=== PATIENT | female | born 1995 | race Caucasian/White ===

== ENCOUNTER 2016-10-23 03:24 | Emergency (ER) | payer OTHER ==
[~2016-10-23] VITALS: Ht 157.5 cm; Wt 88.0 kg
[~2016-10-23 03:24] MED LIST: PREN-39 PO
[2016-10-23 03:26] VITALS: Ht 157.5 cm; Wt 88.0 kg
[2016-10-23] MEDS ORDERED: DIPHTH/TET/ACEL PERTUSS (ADULT) 0.5 ML VIAL IM* ONE (04:00)
--- NOTE | 2016-10-23 04:15 | ERD ---
ER Documentation Chief Complaint Date/Time DATE: 10/23/16 TIME: 04:12 Chief Complaint accidentally cut herself w/scissors tonite on her R hand by the web HPI 18-year-old female comes emergency department the laceration in her right thumb webspace from a pair of scissors that had accidentally cut into her hand tonight. She states that she accidentally caused a stabbing laceration in her thumb webspace. Last tetanus shot is unknown. She is no paresthesias or weakness. ROS All systems reviewed and are negative except as per history of present illness. Medications Home Meds Reported Medications Vits W-Ca,Fe,Fa(<1MG) ( Vitamins) 1 Tab Tablet, 1 TAB PO DAILY 05/26/13 Allergies Allergies: Coded Allergies: No Known Allergies (Verified Allergy, Unknown, 05/26/13) PMhx/Soc History of Surgery: No Anesthesia Reaction: No Hx Neurological Disorder: No Hx Respiratory Disorders: No Hx Cardiac Disorders: No Hx Psychiatric Problems: No Hx Miscellaneous Medical Probl: No Hx Alcohol Use: No Hx Substance Use: No Hx Tobacco Use: No Physical Exam Vitals Vital Signs Date Time Temp Pulse Resp B/P Pulse Ox O2 Delivery O2 Flow Rate FiO2 10/23/16 03:26 97.5 80 18 130/71 99 Physical Exam General: Well-developed, well-nourished. The patient appears in no acute distress. HEENT: Head is normocephalic, atraumatic. No scleral icterus. Neck: Supple. Nontender. Lungs: Clear to auscultation. Normal air movement. Heart: Regular rate and rhythm. S1 and S2 are normal. No murmurs, gallops, or rubs. Abdomen: Nondistended. Extremities: There is a 1 cm laceration in the thumb webspace of the right hand. Is superficial, there is no active bleeding, no foreign body. He she is able to make an okay sign, thumbs up. Radial pulses 2+ bilaterally, capillary refill less than 2 seconds. She is able to flex and extend the thumb. Neurologic: Alert and oriented 3. No focal deficits. Normal speech and gait. Skin: Normal turgor. No rash or lesions. Results 24 hrs Current Medications Medications (Trade) Dose Ordered Sig/Dennis Route PRN Reason Start Time Stop Time Status Last Admin Dose Admin Diphtheria/ Tetanus/Acell Pertussis (Adacel) 0.5 ml ONCE ONCE IM* 10/23/16 04:00 10/23/16 04:01 DC Procedures/MDM 11Laceration Repair by me via Dermabond: Patient was verbally consented location: Right thumb webspace Tendon/Joint/Nerves: No injury Foreign body: None detected after copious irrigation and exploration Post Closure Length: 1 cm Patient's bleeding was easily controlled in the department and there is no indication of anemia. No evidence of compartment syndrome, neurologic injury, vascular injury, open joint, tendon laceration, or foreign body. Patient is appropriate for outpatient follow up. 48 hour wound check. Scar minimization instructions given. Medical decision makin-year-old female comes in with a superficial laceration in the webspace of the right hand, there is a superficial laceration , with no active bleeding, no evidence of tendon injury. Laceration was closed with Dermabond without any complications, she is stable for discharge. Departure Diagnosis: Primary Impression: Laceration Condition: Good Patient Instructions: Emanuel Alonso ANN PA-C Oct 23, 2016 04:15
== END 2016-10-23 04:24 | disposition home or self-care (01) ==
LOC: FTE 03:24
DX: S61.011A Laceration without foreign body of right thumb without damage to nail, initial encounter (principal); W27.2XXA Contact with scissors, initial encounter; Y92.9 Unspecified place or not applicable; Z23 Encounter for immunization
CPT/HCPCS: 12001; 90471; 90715; Z7502

== ENCOUNTER 2018-03-13 04:06 | Emergency (ER) | payer OTHER ==
[~2018-03-13] VITALS: Wt 81.7 kg
[2018-03-13 04:09] VITALS: BP 131/78; PULSE 65; RESP 20
[2018-03-13] MEDS ORDERED: KETOROLAC 30 MG INJ IM STA (05:13)
[2018-03-13] MEDS ORDERED: HYDR-4011 PO (06:39)
[2018-03-13] MEDS ORDERED: CIPR500T4 PO (06:46)
--- NOTE | 2018-03-25 00:58 | QN ---
Documentation Comment Medical screening exam performed. Patient complaining of right upper quadrant abdominal pain. CBC, CMP, lipase, UA, and right upper quadrant ultrasound ordered. Patient will be managed by the oncoming provider. VEE HUFF NP Mar 25, 2018 00:58
--- NOTE | 2018-04-07 07:14 | ERD ---
ER Documentation Chief Complaint Chief Complaint epigastric pain x's 2 hours HPI 22 year old female presents with history of epigastric pain for past 2 hours. Patient states she has a history of gallstones. Denies possibility of . Denies fever, vomiting, diarrhea. Denies other past medical history. Denies allergies. Denies medications. Denies surgeries. Denies alcohol, tobacco, drug use. Up to date on vaccines. ROS All systems reviewed and are negative except as per history of present illness. Medications Home Meds Active Scripts Ciprofloxacin Hcl* (Ciprofloxacin Hcl*) 500 Mg Tablet, 500 MG PO BID for cholecystitis for 7 Days, #14 TAB Prov:ALEJANDRO BANKS 03/13/18 Hydrocodone/Acetaminophen ([place] 5-325 Tablet) 1 Each Tablet, 1 TAB PO Q6H PRN for PAIN, #10 TAB Prov:ALEJANDRO BANKS 03/13/18 Reported Medications Vits W-Ca,Fe,Fa(<1MG) ( Vitamins) 1 Tab Tablet, 1 TAB PO DAILY 05/26/13 Allergies Allergies: Coded Allergies: No Known Allergies (Verified Allergy, Unknown, 05/26/13) PMhx/Soc Medical and Surgical Hx: pt denies Medical Hx History of Surgery: No Anesthesia Reaction: No Hx Neurological Disorder: No Hx Respiratory Disorders: No Hx Cardiac Disorders: No Hx Psychiatric Problems: No Hx Miscellaneous Medical Probl: No Hx Alcohol Use: No Hx Substance Use: No Hx Tobacco Use: No Smoking Status: Never smoker FmHx Family History: No diabetes, No coronary disease, No other Physical Exam Physical Exam Const: No acute distress Resp: Clear to auscultation bilaterally Cardio: Regular rate and rhythm, no murmurs Abd: + Dewey, URQ pain. Otherwise soft, non tender, non distended. Normal bowel sounds. Back: No midline or flank tenderness Neur: Awake and alert Psych: Normal Mood and Affect Results 24 hrs Laboratory Tests Test 03/13/18 05:03 White Blood Count 12.1 10^3/ul Red Blood Count 4.58 10^6/ul Hemoglobin 12.9 g/dl Hematocrit 39.5 % Mean Corpuscular Volume 86.2 fl Mean Corpuscular Hemoglobin 28.2 pg Mean Corpuscular Hemoglobin Concent 32.7 g/dl Red Cell Distribution Width 14.2 % Platelet Count 340 10^3/UL Mean Platelet Volume 10.2 fl Immature Granulocytes % 0.200 % Neutrophils % 79.4 % Lymphocytes % 11.5 % Monocytes % 7.7 % Eosinophils % 0.7 % Basophils % 0.5 % Nucleated Red Blood Cells % 0.0 /100WBC Immature Granulocytes # 0.030 10^3/ul Neutrophils # 9.6 10^3/ul Lymphocytes # 1.4 10^3/ul Monocytes # 0.9 10^3/ul Eosinophils # 0.1 10^3/ul Basophils # 0.1 10^3/ul Nucleated Red Blood Cells # 0.0 10^3/ul Urine Color YELLOW Urine Clarity CLEAR Urine pH 8.0 Urine Specific [place] 1.029 Urine Ketones TRACE mg/dL Urine Nitrite NEGATIVE mg/dL Urine Bilirubin NEGATIVE mg/dL Urine Urobilinogen 1+ mg/dL Urine Leukocyte Esterase NEGATIVE Ezio/ul Urine Microscopic RBC 5 /HPF Urine Microscopic WBC 3 /HPF Urine Squamous Epithelial Cells FEW /HPF Urine Hemoglobin 2+ mg/dL Urine Glucose NEGATIVE mg/dL Urine Total Protein 1+ mg/dl Sodium Level 147 mmol/L Potassium Level 3.4 mmol/L Chloride Level 104 mmol/L Carbon Dioxide Level 28 mmol/L Anion Gap 15 Blood Urea Nitrogen 21 mg/dl Creatinine 0.57 mg/dl Est Glomerular Filtrat Rate mL/min > 60 mL/min Glucose Level 113 mg/dl Calcium Level 9.5 mg/dl Total Bilirubin 0.1 mg/dl Direct Bilirubin 0.00 mg/dl Indirect Bilirubin 0.1 mg/dl Aspartate Amino Transf (AST/SGOT) 110 IU/L Alanine Aminotransferase (ALT/SGPT) 57 IU/L Alkaline Phosphatase 94 IU/L Total Protein 8.2 g/dl Albumin 4.6 g/dl Globulin 3.60 g/dl Albumin/Globulin Ratio 1.27 Lipase 124 U/L POC Beta HCG, Qualitative NEGATIVE Current Medications Medications Dose Sig/Dennis Start Time Status Last (Trade) Ordered Route PRN Stop Time Admin Dose Reason Admin Ketorolac 30 mg ONCE STAT 03/13/18 DC 03/13/18 Tromethamine IM 05:13 05:31 (Toradol) 03/13/18 05:14 Procedures/MDM DIAGNOSTIC IMAGING REPORT Patient: TARA MOTA : 1995 Age: 22 Sex: F MR #: [id number] DOS: 03/13/18 0450 Ordering MD: VEE HUFF NP Location: [facility] Room/Bed: PROCEDURE: Ultrasound right upper quadrant CLINICAL INDICATION: Abdominal pain. TECHNIQUE: Sonographic imaging of the right upper quadrant was performed with grayscale and color Doppler techniques. COMPARISON: None. FINDINGS: LIVER: Measures 16.5 cm in length without appreciated abnormality. GALLBLADDER: Small gallstones are present. There is no wall thickening or pericholecystic fluid. COMMON BILE DUCT: Measures up to 0.7 cm. PANCREAS: Limited. RIGHT KIDNEY: Measures 11.4 cm in length without appreciated abnormality. VISUALIZED AORTA AND INFERIOR VENA CAVA: Unremarkable. IMPRESSION: 1. Small gallstones are present without additional sonographic evidence for acute cholecystitis, however, there is mild dilatation of the common bile duct measuring 0.7 cm. 2. Nuclear medicine HIDA scan, MRCP, and/or ERCP may be helpful for further e valuation as warranted. RPTAT:HGST Marcie Bragg Physician Date Time Electronically viewed and signed by Marcie Bragg Physician on 03/13/2018 05:32 GT/ CC: VEE HUFF CH[employer] PAINTER [phone] MDM: 22 year old female presents with history of epigastric pain for past 2 hours. Patient states she has a history of gallstones. Denies possibility of . Denies fever, vomiting, diarrhea. Based on patient history as well as clinical findings I have low suspicion for choledocholithiasis, ascending cholangitis, cholecystitis, or other emergent condition. Patient most likely has uncomplicated cholelithiasis with slightly elevated white count. Case was discussed with Dr. Serna decision was made to discharge patient with prescription for ciprofloxacin and pain meds. Patient discharged with strict ER precautions. Patient advised to follow up with PMD. All questions answered at discharge. Departure Diagnosis: Primary Impression: Cholelithiasis Cholelithiasis location: gallbladder Cholecystitis presence: without cholecystitis Biliary obstruction: without biliary obstruction Qualified Codes: K80.20 - Calculus of gallbladder without cholecystitis without obstruction Condition: Stable Patient Instructions: Gallstones Referrals: [facility] YOU HAVE RECEIVED A MEDICAL SCREENING EXAM AND THE RESULTS INDICATE THAT YOU DO NOT HAVE A CONDITION THAT REQUIRES URGENT TREATMENT IN THE EMERGENCY DEPARTMENT. FURTHER EVALUATION AND TREATMENT OF YOUR CONDITION CAN WAIT UNTIL YOU ARE SEEN IN YOUR DOCTORS OFFICE WITHIN THE NEXT 1-2 DAYS. IT IS YOUR RESPONSIBILITY TO MAKE AN APPOINTMENT FOR FOLOW-UP CARE. IF YOU HAVE A PRIMARY DOCTOR --you should call your primary doctor and schedule an appointment IF YOU DO NOT HAVE A PRIMARY DOCTOR YOU CAN CALL OUR PHYSICIAN REFERRAL HOTLINE AT IF YOU CAN NOT AFFORD TO SEE A PHYSICIAN YOU CAN CHOSE FROM THE FOLLOWING [facility] [address] [place] [address] [facility] [address] [facility] [address] [facility] [address] [facility] [facility] [address] Additional Instructions: FOLLOW UP WITH YOUR PRIMARY CARE PHYSICIAN TOMORROW.Return to this facility if you are not improving as expected. ALEJANDRO BANKS Apr 07, 2018 06:41
== END 2018-03-13 07:07 | disposition home or self-care (01) ==
LOC: FTE 04:06
DX: K80.20 Calculus of gallbladder without cholecystitis without obstruction (principal)
CPT/HCPCS: 76705; 80053; 81001; 81025; 83690; 85025; J1885; 36415; 96372